=== PATIENT | female | born 1950 | race Caucasian/White ===

== ENCOUNTER 2017-03-07 14:23 | Emergency (ER) | payer MEDICARE, OTHER ==
--- NOTE | 2017-03-07 15:47 | XRAY Preliminary Report ---
Exam: XR CHEST 2 VIEW X-RAY IMPRESSION: Acute on chronic lung disease consisting of lingular infiltrate. Follow-up films recommen ded to confirm resolution. [facility] SITE ID: [id number]
--- NOTE | 2017-03-07 15:52 | XRAY Report ---
EXAM: CHEST RADIOGRAPHY EXAM DATE: 03/07/2017 03:32 PM. CLINICAL HISTORY: Lung cancer. Productive cough and fever for 4 days. COMPARISON: 02/15/2007. TECHNIQUE: 2 views. FINDINGS: Lungs/Pleura: Remote partial left upper lobe resection. New vague airspace density periphery left lat eral lung base. Bibasilar interstitial fibrosis with minimal bronchiectasis right base. No vascular c ongestion nor pneumothorax. Emphysematous changes. Mediastinum: Heart and mediastinal contours are unremarkable. Other: None. IMPRESSION: Acute on chronic lung disease consisting of lingular infiltrate. Follow-up films recommen ded to confirm resolution. [facility] Referring Provider Line: [phone] SITE ID: [id number]
[2017-03-07] MEDS ORDERED: SODIUM CHLORIDE 0.9% 1,000 ML IV ONE ×2 (15:54→16:48)
--- NOTE | 2017-03-07 16:30 | ED Physician Documentation ---
PD HPI URI - Stated complaint Stated Complaint: FEVER/DIARRHEA/COUGH - Chief complaint Chief Complaint: General - History obtained from History obtained from: Patient - History of Present Illness Timing - onset: How many days ago (2-3) Timing duration: Days (2-3) Timing details: Abrupt onset, Still present Associated symptoms: Fever, Chills, Dry cough, NVD, Other (body aches). No: Sore throat, Chest pain, Bilateral edema Contributing factors: No: Sick contact, Travel, Immunocompromised (on chemo but it is not immunosuppressive.) Similar symptoms before: Has not had sx before Recently seen: Not recently seen Review of Systems Constitutional: reports: Fever, Chills, Myalgias, Fatigue Nose: reports: Congestion Cardiac: denies: Chest pain / pressure Respiratory: reports: Cough. denies: Wheezing GI: reports: Nausea, Vomiting, Diarrhea (mild). denies: Abdominal Pain : denies: Dysuria Skin: denies: Rash, Lesions Neurologic: reports: Generalized weakness, Headache (mild). 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 - Present Medications Home Medications: Ambulatory Orders Medication Instructions Recorded Confirmed Benzonatate [Tessalon] 100 mg PO TID PRN #20 capsule 03/07/17 Dexamethasone [Decadron] 4 mg PO DAILY #5 tablet 03/07/17 Host Defense 2 tab PO DAILY 03/07/17 Ondansetron Odt [Zofran] 4 mg TL Q6H PRN #15 tablet 03/07/17 Oseltamivir [Tamiflu] 75 mg PO BID #10 capsule 03/07/17 Osimertinib Mesylate [Tagrisso] 1 tab PO DAILY 03/07/17 03/07/17 Temazepam 1 tab PO DAILY 03/07/17 03/07/17 - Allergies Allergies/Adverse Reactions: Allergies Allergy/AdvReac Type Severity Reaction Status Date / Time latex Allergy Rash Verified 03/07/17 15:05 minocycline Allergy Unknown Verified 03/07/17 15:05 Penicillins Allergy Unknown Verified 03/07/17 15:05 Sulfa (Sulfonamide Allergy Edema Verified 03/07/17 15:05 Antibiotics) preservatives in medications Allergy Unknown Uncoded 03/07/17 15:05 - Social History Does the pt smoke?: No Smoking Status: Never smoker Does the pt drink ETOH?: No Does the pt have substance abuse?: No - Immunizations Immunizations are current?: Yes - POLST Patient has POLST: No PD ED PE NORMAL - Vitals Vital signs reviewed: Yes - General General: Alert and oriented X 3, No acute distress (but appears ill.), Well developed/nourished - HEENT HEENT: Ears normal, Pharynx benign - Neck Neck: Supple, no meningeal sign, No adenopathy - Cardiac Cardiac: RRR, No murmur - Respiratory Respiratory: Clear bilaterally - Abdomen Abdomen: Soft, Non tender - Back Back: No CVA TTP - Derm Derm: Normal color, Warm and dry, No rash - Extremities Extremities: No deformity, No tenderness to palpate, Normal ROM s pain - Neuro Neuro: Alert and oriented X 3, No motor deficit, Normal speech Results - Vitals Vitals: Oxygen O2 Source Room air - Labs Labs: Laboratory Tests 03/07/17 03/07/17 03/07/17 16:35 16:35 16:43 WBC 3.5 L RBC 4.28 Hgb 13.0 Hct 40.3 MCV 94.2 MCH 30.4 MCHC 32.3 RDW 13.8 Plt Count 172 MPV 8.1 Neut # 1.8 Lymph # 1.2 L Tucker # 0.4 Eos # 0.0 Baso # 0.0 Absolute Nucleated RBC 0.00 Nucleated RBC % 0.1 Sodium 136 Potassium 4.0 Chloride 98 L Carbon Dioxide 24 Anion Gap 14.0 H BUN 13 Creatinine 1.0 Estimated GFR (MDRD) 56 L Glucose 79 Calcium 9.0 Total Bilirubin 0.5 AST 19 ALT 13 Alkaline Phosphatase 59 Total Protein 6.7 Albumin 3.9 Globulin 2.8 Albumin/Globulin Ratio 1.4 Lipase 36 Influenza A (Rapid) POSITIVE H Influenza B (Rapid) Negative Influenza Types A,B Ag + H - Rads (name of study) chest Radiology: Prelim report reviewed (lingular infiltrate, chronic with acute increase) PD MEDICAL DECISION MAKING - ED course Complexity details: considered differential, d/w patient Departure - Departure Disposition: 01 Home, Self Care Clinical Impression: Generalized muscle ache, Influenza A, Nausea vomiting and diarrhea Condition: Stable Record reviewed to determine appropriate education?: Yes Instructions: ED Flu Follow-Up: Ayesha Henry PA [Primary Care Provider] - Prescriptions: Benzonatate [Tessalon] 100 mg PO TID PRN #20 capsule PRN Reason: Cough Dexamethasone [Decadron] 4 mg PO DAILY #5 tablet Ondansetron Odt [Zofran] 4 mg TL Q6H PRN #15 tablet PRN Reason: Nausea / Vomiting Oseltamivir [Tamiflu] 75 mg PO BID #10 capsule Comments: Small frequent fluids. Use ondansetron if needed for nausea. Tamiflu twice daily for 5 more days for the flu. It works mediocre but may help decrease the intensity of the symptoms. Tylenol or ibuprofen if needed for fevers and aches. Dexamethasone to decrease inflammation and will help temper the symptoms. However given that you have influenza your likely to still feel ill for 3-5 more days. Discharge Date/Time: 03/07/17 19:24
[2017-03-07 16:45] LABS: BASOPHILS % (AUTO) 0.4 %; EOSINOPHILS % (AUTO) 0.1 %; LYMPHOCYTES # (AUTO) 1.2 10^3/uL (1.5-3.5); LYMPHOCYTES % (AUTO) 35.7 %; MEAN CORPUSCULAR HEMOGLOBIN 30.4 pg (27.0-31.0); MEAN CORPUSCULAR HGB CONC 32.3 g/dL (32.0-36.0); MEAN CORPUSCULAR VOLUME 94.2 fL (81.0-99.0); MEAN PLATELET VOLUME 8.1 fL (7.9-10.8); MONOCYTES # (AUTO) 0.4 10^3/uL (0.0-1.0); NEUTROPHILS # (AUTO) 1.8 10^3/uL (1.5-6.6); NEUTROPHILS % (AUTO) 52.8 %; PLT - PLATELET COUNT 172 10^3/uL (130-450); RED BLOOD COUNT 4.28 10^6/uL (4.20-5.40); RED CELL DISTRIBUTION WIDTH 13.8 % (12.0-15.0); WHITE BLOOD COUNT 3.5 x10^3/uL (4.8-10.8)
[2017-03-07] MEDS ORDERED: ONDANSETRON 4 MG/2 ML VIAL IVP STA (16:48)
[2017-03-07] MEDS ORDERED: DEXAMETHASONE 10 MG/ML VIAL IVP STA (16:49)
[2017-03-07 16:54] LABS: ALBUMIN 3.9 g/dL (3.2-5.5); ALBUMIN/GLOBULIN RATIO 1.4 (1.0-2.2); BILIRUBIN,TOTAL 0.5 mg/dL (0.2-1.0); TOTAL PROTEIN 6.7 g/dL (6.7-8.2)
[2017-03-07] MEDS ORDERED: ACETAMINOPHEN 325 MG TABLET PO STA (17:46)
[2017-03-07] MEDS ORDERED: KETOROLAC 30 MG/ML VIAL IVP STA (17:46)
[2017-03-07] MEDS ORDERED: OSELTAMIVIR 75 MG CAPSULE PO STA (17:46)
[2017-03-07 17:59] VITALS: BP 140/72
== END 2017-03-07 19:24 | disposition home or self-care (01) ==
LOC: ED 14:23
DX: M62.81 Muscle weakness (generalized) (principal); J09.X2 Influenza due to identified novel influenza A virus with other respiratory manifestations; R11.2 Nausea with vomiting, unspecified; R19.7 Diarrhea, unspecified; C34.90 Malignant neoplasm of unspecified part of unspecified bronchus or lung
CPT/HCPCS: 36415; 71046; 80053; 83690; 85025; 87275; 87276; 96361; 96374; 96375; 99283; 99284; A9270

== ENCOUNTER 2022-01-14 13:07 | Emergency (ER) | payer MEDICARE, OTHER ==
--- OUTSIDE RECORDS SUMMARY | 2022-01-14 13:49 | EXTERNAL MEDICAL SUMMARY RPT | Continuity of Care Document ---
:1950 Author Organization [facility] Address [address] [place] [address] Phone Care Team Providers Name Role Phone Unavailable Unavailable Unavailable Rehana, Provider Unavailable Unavailable Allergies and Intolerances date description facility type (no date) DOXYCYCLINE [facility] (unknown) [facility] Encounters No information. Functional Status No information. Immunizations No information. Medications date description facility [id number] temazepam [facility] [phone]+0000 osimertinib [facility] [phone]+0000 valacyclovir [facility] [phone]+0000 osimertinib [facility] [phone]+0000 osimertinib [facility] [phone]+0000 hydrocortisone [facility] [phone]+0000 temazepam [facility] [phone]+0000 temazepam [facility] [phone]+0000 osimertinib [facility] [phone]+0000 hydrocortisone [facility] [phone]+0000 hydrocortisone [facility] [phone]+0000 gabapentin [facility] [phone]+0000 valacyclovir [facility] [phone]+0000 valacyclovir [facility] [phone]+0000 losartan [facility] [phone]+0000 losartan [facility] [phone]+0000 gabapentin [facility] [phone]+0000 hydrocortisone [facility] [phone]+0000 gabapentin [facility] [phone]+0000 temazepam [facility] [phone]+0000 valacyclovir [facility] [phone]+0000 losartan [facility] [phone]+0000 gabapentin [facility] [phone]+0000 losartan [facility] Problems No information. Procedures date description facility +0000 Visit Code Hold [facility] Results/Labs No information. Social History date description facility +0000 Never smoker [facility] Vital Signs date measurement value units +0000 BMI BMI 23.77 kg/m2 [id number]+0000 BP_diastolic BP_diastolic 87 mmHg +0000 BP_systolic BP_systolic 168 mmHg +0000 heart_rate heart_rate 81 /min [id number]+0000 height_metric height_metric 162.56 cm [id number]+0000 height_standard height_standard 64 in +0000 respiration_rate respiration_rate 16 /min +0000 temperature_metric temperature_metric 36.11 C [id number]+0000 temperature_standard temperature_standard 9 7 F [id number]+0000 weight_metric weight_metric 62.6 kg [id number]+0000 weight_standard weight_standard 138 lb
--- NOTE | 2022-01-14 14:12 | ED Physician Documentation ---
History of Present Illness - Stated complaint Stated Complaint: LETHARGIC, DIZZY - Chief complaint Chief Complaint: General - History obtained from History obtained from: Patient - Additonal information Additional information: She has a history of non-small cell lung Lung cancer diagnosed in 2005 with metastases and has of had a few episodes of gamma knife radiation to the brain. Most recently a couple of months ago. She developed inflammation related to same and developed a headache and left leg numbness and weakness. Over the last month and a half or so has also had complications related to steroids including hypertension, and now has overall weakness. She is been on dexamethasone at a dose of 4 mg twice a day for the last 9 or 10 days or so and her overall weakness is getting worse, that said any lateralization has gotten better as had her headache. 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 - Present Medications Home Medications: Ambulatory Orders Medication Instructions Recorded Confirmed Benzonatate [Tessalon] 100 mg PO TID PRN #20 capsule 03/07/17 Host Defense 2 tab PO DAILY 03/07/17 Ondansetron Odt [Zofran] 4 mg TL Q6H PRN #15 tablet 03/07/17 Oseltamivir [Tamiflu] 75 mg PO BID #10 capsule 03/07/17 Osimertinib Mesylate [Tagrisso] 1 tab PO DAILY 03/07/17 03/07/17 Temazepam 1 tab PO DAILY 03/07/17 03/07/17 dexAMETHasone [Decadron] 4 mg PO DAILY #5 tablet 03/07/17 - Allergies Allergies/Adverse Reactions: Allergies Allergy/AdvReac Type Severity Reaction Status Date / Time doxycycline Allergy Unknown Verified 01/14/22 13:25 latex Allergy Rash Verified 03/07/17 15:05 minocycline Allergy Unknown Verified 03/07/17 15:05 Penicillins Allergy Unknown Verified 03/07/17 15:05 Sulfa (Sulfonamide Allergy Edema Verified 03/07/17 15:05 Antibiotics) preservatives in medications Allergy Unknown Uncoded 03/07/17 15:05 - Social History Does the pt smoke?: No Smoking Status: Never smoker Does the pt drink ETOH?: No Does the pt have substance abuse?: No - Immunizations Immunizations are current?: Yes - POLST Patient has POLST: No PD ED PE NORMAL - Vitals Vital signs reviewed: Yes - General General: Alert and oriented X 3, No acute distress - HEENT HEENT: PERRL, EOMI - Neck Neck: Supple, no meningeal sign, No bony TTP - Cardiac Cardiac: RRR, No murmur - Respiratory Respiratory: No respiratory distress, Clear bilaterally - Abdomen Abdomen: Normal bowel sounds, Soft, Non tender - Rectal Rectal: Other (skin tag, dark stool, not melena per se, sent for guiaiac, nttp) - Back Back: No CVA TTP, No spinal TTP - Derm Derm: Normal color, Warm and dry - Neuro Neuro: Alert and oriented X 3, art instructor 2-12 intact, No motor deficit, No sensory deficit, Normal speech, Other (Peripheral strength is actually quite good, no overt asymmetric allergy to her motor function or sensation.) Eye Opening: Spontaneous Motor: Obeys Commands Verbal: Oriented GCS Score: 15 Results - Vitals Vitals: Vital Signs - 24 hr 01/14/22 01/14/22 01/14/22 13:18 17:00 19:00 Temperature 37.1 C Heart Rate 76 75 68 Respiratory 12 15 18 Rate Blood Pressure 149/86 H 159/84 H 139/79 H O2 Saturation 98 98 98 01/14/22 19:49 Temperature 37 C Heart Rate 71 Respiratory 17 Rate Blood Pressure 147/87 H O2 Saturation 99 Oxygen O2 Source Room air - EKG (time done) 1423 Rate: Rate (enter#) (67) Rhythm: NSR, LAE [place]: Normal Intervals: Normal SC QRS: Normal Ischemia: Non specific changes (q waves v1/2). No: ST elevation c/w ischemia, ST depression - Labs Labs: Laboratory Tests 01/14/22 01/14/22 01/14/22 14:18 14:18 14:18 WBC 18.0 H RBC 4.22 Hgb 13.2 Hct 40.1 MCV 95.0 MCH 31.3 H MCHC 32.9 RDW 15.5 H Plt Count 244 MPV 9.4 Neut # (Auto) 16.3 H Lymph # (Auto) 1.1 L Pettis # (Auto) 0.5 Eos # (Auto) 0.0 Baso # (Auto) 0.0 Absolute Nucleated RBC 0.00 Nucleated RBC % 0.0 Sodium 137 Potassium 4.3 Chloride 101 Carbon Dioxide 28 Anion Gap 8.0 BUN 34 H Creatinine 0.9 Estimated GFR (MDRD) 62 L Glucose 110 H Calcium 9.7 Magnesium 2.2 Total Bilirubin 0.9 AST 18 ALT 12 Alkaline Phosphatase 50 Total Creatine Kinase 30 Total Protein 5.8 L Albumin 3.6 Globulin 2.2 Albumin/Globulin Ratio 1.6 Cortisol 0.8 PD MEDICAL DECISION MAKING - ED course ED course: This is a tim 71-year-old woman with known 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 The initial worry was for steroid myopathy but her CK was negative and her peripheral strength is actually pretty good. Subsequently we did do an MRI of the brain showing: Brain: No midline shift. There is a rim-enhancing lesion in the left posterior frontal lobe measuring 0.9 x 1.6 x 1.3 cm. There is surrounding hyperintense T2/FLAIR signal intensity. There is cerebral volume loss for age. There is periventricular white matter chronic small vessel ischemic change. The brainstem appears normal. Diffusion-weighted images demonstrate no acute ischemic insults. No chronic ischemic insults. Normal intravascular flow voids are present. [place] [place] but after a few hours the patient tired of waiting and wanted to touch base with her team tomorrow. There is nothing here that would mandate specific therapy or treatment tonight so I think that is fine. Departure - Departure Disposition: 01 Home, Self Care Clinical Impression: Metastatic non-small cell lung cancer, Muscle weakness Condition: Good Record reviewed to determine appropriate education?: Yes Instructions: ED Weakness [facility] Comments: Call your cancer team tomorrow for further evaluation and treatment, I would still continue to take the dexamethasone until you can consult with your team. Return for new or worsening Symptoms. Discharge Date/Time: 01/14/22 19:54
[2022-01-14 14:21] LABS: BASOPHILS % (AUTO) 0.1 %; EOSINOPHILS % (AUTO) 0.1 %; HCT - HEMATOCRIT 40.1 % (37.0-47.0); HGB - HEMOGLOBIN 13.2 g/dL (12.0-16.0); LYMPHOCYTES # (AUTO) 1.1 10^3/uL (1.5-3.5); LYMPHOCYTES % (AUTO) 6.3 %; MEAN CORPUSCULAR HEMOGLOBIN 31.3 pg (27.0-31.0); MEAN CORPUSCULAR HGB CONC 32.9 g/dL (32.0-36.0); MEAN PLATELET VOLUME 9.4 fL (7.9-10.8); MONOCYTES # (AUTO) 0.5 10^3/uL (0.0-1.0); MONOCYTES % (AUTO) 2.5 %; NEUTROPHILS # (AUTO) 16.3 10^3/uL (1.5-6.6); NEUTROPHILS % (AUTO) 90.2 %; PLT - PLATELET COUNT 244 10^3/uL (130-450); RED BLOOD COUNT 4.22 10^6/uL (4.20-5.40); RED CELL DISTRIBUTION WIDTH 15.5 % (12.0-15.0)
[2022-01-14 14:47] LABS: ALBUMIN 3.6 g/dL (3.2-5.5); ALBUMIN/GLOBULIN RATIO 1.6 (1.0-2.2); BILIRUBIN,TOTAL 0.9 mg/dL (0.2-1.0); CALCIUM 9.7 mg/dL (8.5-10.3); CREATININE 0.9 mg/dL (0.4-1.0); MAGNESIUM 2.2 mg/dL (1.7-2.8); POTASSIUM 4.3 mmol/L (3.5-5.0); TOTAL PROTEIN 5.8 g/dL (6.7-8.2)
[2022-01-14] MEDS ORDERED: GADOBUTROL 7.5 MMOL/7.5 ML VIAL ONE (15:06)
[2022-01-14] MEDS ORDERED: SODIUM CHLORIDE 0.9% 1,000 ML IV STA (15:09)
[2022-01-14] MEDS ORDERED: GADOBUTROL 7.5 MMOL/7.5 ML VIAL IVP ONE (15:37)
--- NOTE | 2022-01-14 16:09 | MRI Report ---
PROCEDURE: BRAIN W/WO INDICATIONS: nsclc mets weak CONTRAST: 6.0 TECHNIQUE: Noncontrast axial T1 spin echo, axial T2 fast spin echo, sagittal and axial FLAIR, coronal T2 fast sp in echo, axial gradient echo, axial diffusion and ADC through the brain. After the administration of contrast, axial and coronal T1 spin echo with fat saturation through the brain. COMPARISON: None. FINDINGS: Image quality: Excellent. CSF spaces: Basal cisterns are patent. No extra-axial fluid collections. Ventricles are normal in size and shape. Brain: No midline shift. There is a rim-enhancing lesion in the left posterior frontal lobe measurin g 0.9 x 1.6 x 1.3 cm. There is surrounding hyperintense T2/FLAIR signal intensity. There is cerebral volume loss for age. There is periventricular white matter chronic small vessel ischemic change. Th e brainstem appears normal. Diffusion-weighted images demonstrate no acute ischemic insults. No chr onic ischemic insults. Normal intravascular flow voids are present. Skull and face: Calvarial marrow is normal in signal. Orbits appear normal. Sinuses: Sinuses and mastoids appear clear. IMPRESSION: Enhancing focus with vasogenic edema in the right posterior frontal lobe most suggestive of metastati c disease. Reviewed by: Mary Sandoval MD on 01/14/2022 4:08 PM PST Approved by: Mary Sandoval MD on 01/14/2022 4:08 PM PST Station ID: [id number]
[2022-01-14 19:50] VITALS: BP 147/87
== END 2022-01-14 19:54 | disposition home or self-care (01) ==
LOC: ED 13:07
DX: M62.81 Muscle weakness (generalized) (principal); C34.90 Malignant neoplasm of unspecified part of unspecified bronchus or lung
CPT/HCPCS: 36415; 70553; 80053; 82533; 82550; 83735; 85025; 93005; 99281; 99284; A9585